=== PATIENT | male | born 1955 | race Caucasian/White ===

== ENCOUNTER 2016-07-17 01:09 | Inpatient (IN) | payer BC ==
[~2016-07-17] VITALS: Ht 200.7 cm; Wt 149.6 kg
[2016-07-17 02:18] LABS: HEMATOCRIT 50.8 % (38.0-50.0); MCHC 34.1 G/DL (30.0-36.0); MEAN PLAT.VOLUME 10.5 uM^3 (9.0-12.4); PLATELET COUNT 232 K/uL (156-360); RBC DIS.WIDTH-CV 12.8 % (11.8-14.6); RBC DIS.WIDTH-SD 43.2 % (39-53); RED BLOOD COUNT 5.58 M/uL (4.00-5.50); WHITE BLOOD COUNT 19.7 K/uL (4.1-10.2)
[2016-07-17 02:29] LABS: INTER. NORMALIZED RATIO 1.2; PTT 26.6 (25-32)
[2016-07-17 02:31] LABS: CHLORIDE 101 mEq/L (99-109); POTASSIUM 4.6 mEq/L (3.7-5.4); SODIUM 136 mEq/L (136-147)
[2016-07-17 02:34] LABS: GLUCOSE 317 mg/dL (70-99)
[2016-07-17 02:35] LABS: ANION GAP 15 MEQ/L (2-14)
[2016-07-17 02:36] LABS: TOTAL BILIRUBIN 1.1 mg/dL (0.0-1.0)
[2016-07-17 02:37] LABS: ALKALINE PHOSPHATASE 60 IU/L (3-129); GFR ESTIMATE (CALCULATED) 55 mL/min/
[2016-07-17 02:38] LABS: UREA NITROGEN (BUN) 25 mg/dL (9-23)
[2016-07-17 02:39] LABS: TROP-I INTERPRETATION NEGATIVE; TROPONIN-I < 0.01 ng/mL (0.0-0.30)
[2016-07-17 02:41] LABS: LIPASE 61 U/L (1.0-51.0)
[2016-07-17 02:57] LABS: ADD MIUA? YES; BILIRUBIN NEGATIVE; BLOOD MODERATE; COLOR YELLOW ((YELLOW)); GLUCOSE (STRIP) >=500; KETONES 5; LEUKOCYTES NEGATIVE; NITRITE NEGATIVE; PROTEIN (STRIP) NEGATIVE; SPECIFIC GRAVITY 1.031 (1.000-1.030); UROBILINOGEN 0.2 MG/DL (0.2-1.0)
[2016-07-17 02:59] LABS: BACTERIA NONE SEEN /HPF; EPITHELIAL CELLS NONE SEEN /HPF; MUCUS NONE SEEN /LPF; RED BLOOD CELLS 0-5 /HPF (0-5); UCUL ADDED? NO; WHITE BLOOD CELLS 0-5 /HPF (0-5)
[2016-07-17] MEDS ORDERED: LISINOPRIL5 MG PO (05:52)
[2016-07-17] MEDS ORDERED: LOPRESSOR25 MG PO (05:52)
[2016-07-17] MEDS ORDERED: JENTADUETO 2.51 EAC2 PO (05:52)
[2016-07-17] MEDS ORDERED: PRAVASTATIN SOD10 MG PO (05:53)
[2016-07-17] MEDS ORDERED: PHENERGAN-CODE120 ML PO (05:53)
[2016-07-17] MEDS ORDERED: ASPIRIN81 M2 PO (05:54)
[2016-07-17] MEDS ORDERED: FARXIGA5 MG PO (05:54)
[2016-07-17 08:55] VITALS: BP 168/99
[2016-07-17 17:41] VITALS: BP 126/74
[2016-07-17 19:20] VITALS: BP 159/78
[2016-07-17 23:39] VITALS: BP 148/79
[2016-07-18] VITALS (7 sets, daily range): BP systolic 123–150; BP diastolic 70–82
[2016-07-18 07:00] LABS: BASOPHIL COUNT 0.1 K/uL (0-0.1); EOSINOPHIL (%) 4.8 % (0-5); EOSINOPHIL COUNT 0.5 K/uL (0-0.3); HEMATOCRIT 45.8 % (38.0-50.0); IMMATURE GRANULOCYTE (%) 1.2 % (0.0-0.7); IMMATURE GRANULOCYTE COUNT 0.1 K/uL; INSTRUMENT ABS NEUTROPHIL CT 6.9 K/uL; LYMPHOCYTE COUNT 2.1 K/uL (1.0-2.8); MCHC 33.4 G/DL (30.0-36.0); MCV 92.7 FL (86-99); MEAN PLAT.VOLUME 10.2 uM^3 (9.0-12.4); MONOCYTE (%) 8.9 % (3-12); NEUTROPHIL (%) 64.7 % (45-76); NEUTROPHIL COUNT 6.9 K/uL (1.8-6.4); PLATELET COUNT 176 K/uL (156-360); RBC DIS.WIDTH-CV 13.1 % (11.8-14.6); RBC DIS.WIDTH-SD 44.7 % (39-53); RED BLOOD COUNT 4.94 M/uL (4.00-5.50); WHITE BLOOD COUNT 10.7 K/uL (4.1-10.2)
[2016-07-18 07:35] LABS: ANION GAP 10 MEQ/L (2-14); CHLORIDE 100 MEQ/L (99-109); GFR ESTIMATE (CALCULATED) > 59 mL/min/; GLUCOSE 208 mg/dL (70-99); MAGNESIUM 2.5 mg/dl (1.3-2.7); POTASSIUM 4.3 MEQ/L (3.7-5.4); SAMPLE HEMOLYSIS CHECK 0; SAMPLE ICTERIC CHECK 0; SAMPLE LIPEMIA CHECK 0; SODIUM 137 MEQ/L (136-147); UREA NITROGEN (BUN) 25 mg/dL (9-23)
[2016-07-18] MEDS ORDERED: PROAIR HFA8.5 GM IH (11:08)
[2016-07-18 12:10] LABS: POINT-OF-CARE METER ID UU14162508
[2016-07-18 21:19] LABS: POINT-OF-CARE METER ID UU14162508
[2016-07-19 06:24] LABS: POINT-OF-CARE METER ID UU14162508
[2016-07-19 07:26] VITALS: BP 134/73
[2016-07-19 07:31] LABS: MCH 32.2 PG (29.0-34.0); MCHC 34.1 G/DL (30.0-36.0); MCV 94.5 FL (86-99); PLATELET COUNT 194 K/uL (156-360); RBC DIS.WIDTH-CV 13.1 % (11.8-14.6); RBC DIS.WIDTH-SD 45.1 % (39-53); RED BLOOD COUNT 4.87 M/uL (4.00-5.50); WHITE BLOOD COUNT 9.3 K/uL (4.1-10.2)
[2016-07-19 08:02] LABS: ANION GAP 9 MEQ/L (2-14); CHLORIDE 98 MEQ/L (99-109); GFR ESTIMATE (CALCULATED) > 59 mL/min/; GLUCOSE 263 mg/dL (70-99); POTASSIUM 4.6 MEQ/L (3.7-5.4); SAMPLE HEMOLYSIS CHECK 0; SAMPLE ICTERIC CHECK 0; SAMPLE LIPEMIA CHECK 0; SODIUM 135 MEQ/L (136-147); UREA NITROGEN (BUN) 20 mg/dL (9-23)
[2016-07-19 08:47] VITALS: BP 140/81
[2016-07-19 11:32] LABS: POINT-OF-CARE METER ID UU14162508
[2016-07-19] MEDS ORDERED: TAMSULOSIN HCL0.4 MG PO (14:13)
[2016-07-19] MEDS ORDERED: ADVAIR HFA120 INHALA IH (14:14)
[2016-07-19] MEDS ORDERED: BISACODYL5 MG PO (14:15)
[2016-07-19] MEDS ORDERED: TYLENOL WITH C1 EACH PO (14:50)
== END 2016-07-19 15:40 | disposition home or self-care (01) | DRG 392 ==
LOC: EME 01:09 → EDOF 07:23 → 2EASTP 09:01
PROVIDERS: Emergency Medicine; Hospitalist; Internal Medicine
DX: K59.03 Drug induced constipation (principal); R33.9 Retention of urine, unspecified; E11.65 Type 2 diabetes mellitus with hyperglycemia; S22.41XA Multiple fractures of ribs, right side, initial encounter for closed fracture; E66.01 Morbid (severe) obesity due to excess calories; E86.0 Dehydration; T40.2X5A Adverse effect of other opioids, initial encounter; J98.11 Atelectasis; E78.5 Hyperlipidemia, unspecified; I10 Essential (primary) hypertension; G47.33 Obstructive sleep apnea (adult) (pediatric); J45.909 Unspecified asthma, uncomplicated; Z68.37 Body mass index [BMI] 37.0-37.9, adult
CPT/HCPCS: 71010; 74177; 80048; 80053; 81003; 82948; 83605; 83690; 83735; 83880; 84484; 85025; 85027; 85610; 85730; 87040; 94640; 94640 76; 94799; 99202; 99281; 99285; J0456; J0696; J1364; J1815; J1885; J2270; J2405; J7030; J7050; S0028